=== PATIENT | male | born 1945 | race Caucasian/White ===

== ENCOUNTER → 2024-10-19 13:37 | Outpatient (CLI) | payer OTHER, SELFPAY ==
--- NOTE | 2024-10-19 13:40 | DI.ECHO.S_ITS ---
[place] [facility]---------+ [facility] : : [id number] : : [place] [place] : : [id number] : : Phone: [phone] Echocardiogram Report + + :Name: GAGE VAZQUEZ Study Date: 10/19/2024 Height: 68 in : :[facility] ReadingLocation: Weight: 232 lb : : Gender: Male BSA: 2.2 m2 : :: 1945 Age: 79 yrs BP: 134/61 mmHg: :Reason For Study: CAD : :Ordering Physician: JO ANN, : :HILDA Performed By: Paolo Marti : :Referring: [id number] : + + Interpretation Summary Normal sinus rhythm. Normal LV size and mild LVH; normal wall motion and LV systolic function. EF is 65-70%. Moderate LA enlargement; otherwise normal chamber sizes. Aortic valve is a trileaflet structure with moderately thickened and calcified leaflets and severe associated aortic stenosis. Peak velocity is 4.6 m/sec and mean gradient is 57 mm Hg; calculated valve area is 1 cm squared. Recommend cardiology consultation to discuss aortic valve replacement. No prior study available for comparison Procedure: A two-dimensional transthoracic echocardiogram with color flow and Doppler was performed. The study quality was technically good. There is no prior echocardiogram noted for this patient. The patient was in normal sinus rhythm during the exam. Left Ventricle: The left ventricle is normal in size. Left ventricular wall thickness is mildly increased. There is no ventricular septal defect visualized. The ejection fraction is estimated to be 65-70%. The left ventricle is hyperdynamic. There are no focal wall motion abnormalities. Diastolic parameters suggest a relaxation abnormality of the left ventricle, consistent with probable normal filling pressures. Right Ventricle: The right ventricle is mildly dilated. The right ventricular systolic function is normal. Atria: The left atrium is moderately dilated. Right atrial size is normal. There is no Doppler evidence for an interatrial shunt. Mitral Valve: The mitral valve leaflets appear normal. There is no evidence of stenosis, fluttering, or prolapse. There is no mitral regurgitation noted. Aortic Valve: The aortic valve is trileaflet. The aortic valve is moderately calcified. There is moderate to severe aortic stenosis. The peak aortic velocity is 4.66 m/sec. The aortic valve mean gradient is 58.2 mmHg. The calculated aortic valve area is 1.1 cm2. There is trace aortic regurgitation. Tricuspid Valve: The tricuspid valve is normal in structure and function. There is a trace or physiologic amount of tricuspid regurgitation. Pulmonic Valve: The pulmonic valve leaflets are thin and pliable; valve motion is normal. There is no pulmonic valvular regurgitation. Great Vessels: The aortic root is normal size. The dimensions of the ascending aorta are normal. The pulmonary artery is normal size. The IVC is of normal diameter and collapses greater than 50% with a sniff. This suggests a low right atrial pressure of 3 mm Hg. Pericardium/ Pleura There is no pericardial effusion. There is no pleural effusion. MMode/2D Measurements & Calculations LVIDd: 5.2 cm LVOT diam: 2.0 cm LVIDs: 2.6 cm Ao root diam: 3.2 cm FS: 49.7 % asc Aorta Diam: 3.2 cm EPSS: 0.88 cm IVSd: 1.3 cm LVPWd: 1.3 cm LV pierce. diameter/BSA (cm/m^2): 2.4 LV sys. diameter/BSA (cm/m^2): 1.2 LA A2 area: 26.4 cm2 RA long axis: 3.9 cm LA A4 area: 23.6 cm2 RA area: 11.8 cm2 LA length (vol): 5.7 cm RA vol: 30.9 ml LA vol: 92.7 ml RA : 14.2 ml/m2 LA vol index: 42.6 ml/m2 IVC diam: 1.5 cm RVD1 (basal): 4.1 cm RVD2 (mid): 3.5 cm TAPSE: 3.5 cm Doppler Measurements & Calculations Ao V2 max: 466.4 cm/sec LVOT Max Erwin: 134.1 cm/sec Ao V2 mean: 363.5 cm/sec LV V1 max P.2 mmHg Ao max P.0 mmHg LV V1 VTI: 33.6 cm Ao mean P.2 mmHg JAIME(I,D): 1.1 cm2 Ao V2 VTI: 101.0 cm JAIME(V,D): 0.92 cm2 sev ratio: 0.33 JAIME indexed to BSA (cm^2/m^2): 0.49 AI P1/2t: 625.2 msec AI dec slope: 175.1 cm/sec2 MV E max erwin: 82.2 cm/sec PA V2 max: 132.9 cm/sec MV A max erwin: 101.0 cm/sec PA V2 mean: 100.5 cm/sec MV E/A: 0.81 PA mean P.5 mmHg Med Peak E' Erwin: 6.5 cm/sec PA pr(Accel): 22.5 mmHg E/E' med: 12.6 Lat Peak E' Erwin: 6.8 cm/sec E/E' lat: 12.1 E/e' average: 12.3 MV dec time: 0.26 sec SV(LVOT): 107.6 ml Electronically signed by: Sharmila Gonzalez M.D. on Reading Physician:10/19/2024 11:13 PM
== END ==
PROVIDERS: Referring Provider Physician Assistant; Visit Provider Physician Assistant
DX: I35.0 Nonrheumatic aortic (valve) stenosis (principal); I25.10 Atherosclerotic heart disease of native coronary artery without angina pectoris
CPT/HCPCS: 93306